=== PATIENT | female | born 1985 | race Hispanic/Latino ===

== ENCOUNTER 2021-12-20 18:36 | Emergency (ER) | payer BC ==
[~2021-12-20] VITALS: Ht 170.2 cm; Wt 86.2 kg
[2021-12-20 20:15] LABS: CLARITY,URINE SL CLOUDY (CLEAR); COLOR,URINE YELLOW (YELLOW); KETONES,URINE NEGATIVE (NEGATIVE); LEUKOCYTE ESTERASE ,URINE 1+ (NEGATIVE); NITRITE,URINE NEGATIVE (NEGATIVE); PROTEIN,URINE DIPSTICK NEGATIVE (NEGATIVE); URINE UROBILINOGEN 0.2 mg/dL (0.2 - 1)
[2021-12-20 20:27] LABS: BACTERIA,URINE MANY /HPF; EPITHELIAL CELLS,URINE MODERATE /LPF
[2021-12-20] MEDS ORDERED: ONDANSETRON ODT4 MG PO (21:57)
[2021-12-20] MEDS ORDERED: CIPRO500 MG PO (21:57)
[2021-12-20] MEDS ORDERED: ACETAMINOPHEN-1 EAC4 PO (21:57)
== END 2021-12-20 21:59 | disposition home or self-care (01) ==
LOC: ER 18:50
DX: N39.0 Urinary tract infection, site not specified (principal); R10.30 Lower abdominal pain, unspecified; R11.0 Nausea; N83.201 Unspecified ovarian cyst, right side
CPT/HCPCS: 74176; 81001; 81025; 99283

== ENCOUNTER 2022-01-08 10:44 | Emergency (ER) | payer BC ==
[~2022-01-08] VITALS: Ht 172.7 cm; Wt 77.1 kg
[~2022-01-08 10:44] MED LIST: ACETAMINOPHEN-1 EAC4 PO; CIPRO500 MG PO; ONDANSETRON ODT4 MG PO
[2022-01-08] MEDS ORDERED: DICYCLOMINE HCL20 MG PO (11:33)
[2022-01-08] MEDS ORDERED: ULTRAM 50MG50 MG PO (14:58)
== END 2022-01-08 12:00 | disposition home or self-care (01) ==
LOC: FSED 11:11
DX: R10.12 Left upper quadrant pain (principal); K59.00 Constipation, unspecified
CPT/HCPCS: 99283